=== PATIENT | male | born 1995 | race Caucasian/White ===

== ENCOUNTER 2017-04-10 21:24 | Emergency (ER) | payer SELFPAY ==
[~2017-04-10] VITALS: Ht 175.3 cm; Wt 83.9 kg
[2017-04-10] MEDS ORDERED: RX-TRAMADOL 50 MG (ULTRAM) TAB PPK#4 PO STA (22:51)
--- NOTE | 2017-04-10 22:59 | ED Lower Extremity ---
General Chief Complaint: Lower Extremity Stated Complaint: KNEE PAIN Nursing Triage Note: PT C/O L KNEE PAIN WHILE PLAYING BASKETBALL Nursing Sepsis Screen: No Definite Risk Source: patient, other (friend) Exam Limitations: no limitations History of Present Illness Date Seen by Provider: Apr 10, 2017 Time Seen by Provider: 22:20 Initial Comments Patient reports playing basketball this evening and landing on the left knee wrong. Reports feeling a pop and now has severe left knee pain. States he is unable to stand on the left lower extremity due to knee pain. Reports left knee pain is so severe that it "makes my right knee shake." Denies taking Tylenol or ibuprofen at home. Onset: this evening Pain/Injury Location: left knee Method of Injury: sports injury, twisted Modifying Factors: Improves With Immobilization, Worse With Movement Allergies and Home Medications Allergies Coded Allergies: No Known Drug Allergies (Unverified , 04/10/17) Home Medications Naproxen 500 Mg Tablet, 500 MG PO BID PRN for PAIN-MODERATE, #20 Ref 0 Prescribed by: DILLON SIFUENTES on 04/10/17 2300 Constitutional: no symptoms reported Respiratory: no symptoms reported Cardiovascular: no symptoms reported Gastrointestinal: no symptoms reported Musculoskeletal: see HPI, No back pain, joint pain, joint swelling, No neck pain Skin: no symptoms reported Psychiatric/Neurological: No Symptoms Reported All Other Systems Reviewed Negative Unless Noted: Yes (Negative excepted noted.) Past Fedezrt-Tajlst-Rqysgz Hx Patient Social History Alcohol Use: Past History Recreational Drug Use: No Smoking Status: Never a Smoker Recent Foreign Travel: No Contact w/Someone Who Travel: No Recent Infectious Disease Expo: No Physical Abuse: No Sexual Abuse: No Surgeries History of Surgeries: No Respiratory History of Respiratory Disorde: No Cardiovascular History of Cardiac Disorders: No Neurological History of Neurological Disord: No Gastrointestinal History of Gastrointestinal Di: No Musculoskeletal History of Musculoskeletal Dis: No Endocrine History of Endocrine Disorders: No Psychosocial Suicide Risk Score: 0 Reviewed Nursing Assessment Reviewed/Agree w Nursing PMH: Yes Family Medical History Significant Family History: No Pertinent Family Hx Physical Exam Vital Signs Vital Sign - Last 12Hours 04/10/17 21:32 Temp 98.0 Pulse 107 Resp 22 B/P (MAP) 136/100 (112) Pulse Ox 96 O2 Delivery Room Air Capillary Refill : Less Than 3 Seconds General Appearance: WD/WN, no apparent distress Cardiovascular: normal peripheral pulses, no edema Hips: bilateral hip non-tender, bilateral hip normal inspection, bilateral hip normal range of motion, bilateral hip no evidence of injury Legs: bilateral leg non-tender, bilateral leg normal inspection, bilateral leg normal range of motion, bilateral leg no evidence of injury Knees: right knee non-tender, right knee normal inspection, right knee normal range of motion, right knee no evidence of injury, left knee bone tenderness ( medial bony tenderness), left knee joint effusion, left knee pain, left knee soft tissue tenderness, left knee swelling Ankles: bilateral ankle non-tender, bilateral ankle normal inspection, bilateral ankle normal range of motion, bilateral ankle no evidence of injury Feet: bilateral foot non-tender, bilateral foot normal inspection, bilateral foot normal range of motion, bilateral foot no evidence of injury Neurologic/Tendon: normal sensation, normal motor functions, normal tendon functions, responds to pain, no evidence tendon injury Neurologic/Psychiatric: no motor/sensory deficits, alert, normal mood/affect, oriented x 3 Skin: normal color, warm/dry Progress/Results/Core Measures Results/Orders My Orders Orders - DILLON SIFUENTES Knee, Left, 3 Views (04/10/17 21:53) Knee Immobilizer (04/10/17 22:51) Crutches (04/10/17 22:51) Rx-Tramadol Hcl (Rx-Ultram) (04/10/17 22:51) Vital Signs/I&O Vital Sign - Last 12Hours 04/10/17 21:32 Temp 98.0 Pulse 107 Resp 22 B/P (MAP) 136/100 (112) Pulse Ox 96 O2 Delivery Room Air Blood Pressure Mean: 112 Diagnostic Imaging Diagonstic Imaging: Xray Plain Films/CT/US/NM/MRI: knee Comments no acute bony abnormalities Reviewed: Reviewed by Me Departure Impression Impression: Primary Impression: Sprain of knee Qualified Codes: S83.92XA - Sprain of unspecified site of left knee, initial encounter Disposition: 01 HOME, SELF-CARE Condition: Improved Departure-Patient Inst. Decision time for Depature: 22:55 Referrals: ROSANGELA GIL DO (PCP/Family) Primary Care Physician Patient Instructions: Knee Sprain (DC) Add. Discharge Instructions: All discharge instructions reviewed with patient and/or family. Voiced understanding. Tylenol Extra Strength [id number] as directed for pain. Elevate the knee on pillows. Knee brace and crutches as instructed. Ice pack for 20 minute intervals as needed. You may remove the brace to shower and at nighttime. Follow-up with your family practitioner if no improvement in symptoms in 7-10 days for possible need of repeat x-rays or possibly need of an MRI as an outpatient. Return to the emergency department for worsened symptoms or any other concerns. Scripts Naproxen (Naprosyn) 500 Mg Tablet 500 MG PO BID Y for PAIN-MODERATE, #20 TAB 0 Refills Prov: DILLON SIFUENTES 04/10/17 DILLON SIFUENTES Apr 10, 2017 22:59
[2017-04-10] MEDS ORDERED: NAPR-1071 PO (23:00)
[2017-04-10 23:09] VITALS: BP 135/89
--- NOTE | 2017-04-11 07:49 | Diagnostic Imaging Report ---
INDICATION: Left knee pain. COMPARISON: None available. FINDINGS: No knee joint effusion. No fracture or osseous erosions. Joint spaces are well-maintained. There is questionable irregularity of the medial aspect of the lateral femoral condyle which could be seen with osteochondral lesion or impaction injury as the patient has had recent pivot shift injury. IMPRESSION: 1. Question of small impaction fracture versus osteochondral lesion of the lateral femoral condyle. MRI could be performed to assess for internal derangement, as deemed clinically indicated. Dictated by: Dictated on workstation # [id number]
== END 2017-04-10 23:09 | disposition home or self-care (01) ==
LOC: ER 21:28
DX: S83.92XA Sprain of unspecified site of left knee, initial encounter (principal); X50.0XXA Overexertion from strenuous movement or load, initial encounter; Y93.67 Activity, basketball
CPT/HCPCS: 73562; 99283